=== PATIENT | male | born 1995 | race Caucasian/White ===

== ENCOUNTER 2022-03-04 21:59 | Emergency (ER) | payer OTHER ==
[2022-03-04 23:33] LABS: HEMOGLOBIN 15.5 gm/dl (14.0-17.5); RED BLOOD COUNT 5.02 M/UL (4.20-5.50); WHITE BLOOD COUNT 10.4 K/UL (4.5-11.0)
[2022-03-04 23:51] LABS: BUN/CREATININE RATIO 16 (0-10)
== END 2022-03-05 02:16 | disposition home or self-care (01) ==
LOC: ER1 21:59
PROVIDERS: Family Medicine
DX: R42 Dizziness and giddiness (principal); Z20.822 Contact with and (suspected) exposure to COVID-19; Z88.1 Allergy status to other antibiotic agents; Z79.899 Other long term (current) drug therapy
CPT/HCPCS: 80053; 85025; 99284; U0002